=== PATIENT | male | born 1990 | race Caucasian/White ===

== ENCOUNTER 2021-12-13 16:37 | Emergency (ER) | payer SELFPAY ==
[2021-12-13] MEDS ORDERED: Lidocaine 1% (PF) 30 ML VIAL ONE (16:57)
== END 2021-12-13 18:06 | disposition home or self-care (01) ==
LOC: CSHERS 16:37
DX: S61.211A Laceration without foreign body of left index finger without damage to nail, initial encounter (principal); W26.8XXA Contact with other sharp object(s), not elsewhere classified, initial encounter
CPT/HCPCS: 12002; J2001